=== PATIENT | female | born 1990 | race African-American/Black ===

== ENCOUNTER 2025-04-08 07:04 | Emergency (ER) | payer MEDICAID, OTHER ==
[~2025-04-08] VITALS: Ht 165.1 cm; Wt 63.6 kg
[~2025-04-08 07:04] MED LIST: PREN1TAB22
[2025-04-08 07:15] VITALS: BP 121/76; PULSE 89; RESP 16; TEMP 98.4; O2SAT 99
[2025-04-08] MEDS: BACITRACIN 28 GM OINTMENT TP ONE (07:53)
== END 2025-04-08 07:56 | disposition home or self-care (01) ==
LOC: EMS 07:07
DX: S61.511D Laceration without foreign body of right wrist, subsequent encounter (principal); F12.90 Cannabis use, unspecified, uncomplicated; F17.210 Nicotine dependence, cigarettes, uncomplicated; Z79.899 Other long term (current) drug therapy; X58.XXXD Exposure to other specified factors, subsequent encounter
CPT/HCPCS: 99282; Z7502; Z7610